=== PATIENT | male | born 1965 | race Caucasian/White ===

== ENCOUNTER 2016-05-31 08:34 | Emergency (ER) | payer OTHER ==
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
--- NOTE | 2016-05-31 13:06 | ED ORDER SUMMARY ---
..... Patient: LISA BARRON OrderSheet [facility] VisitID: [id number] [place] [address] 51y, M Registration Date/Time: 05/31/2016 ORDER SHEET Weight: 81.6 kg (stated) Allergies: No Known Drug Allergy GENERAL ORDERS: Hand 3 or 4V Left Urgent (12:22 05/31/2016 Huy ADAN) (Ack 12:25 TBershannon) (13:29 Kristi R.N.) Dress Wounds (13:05 05/31/2016 Huy ADAN) (13:29 Kristi R.N.) MEDICATION ORDERS: Dilaudid IM 2 mg (NOW) (10:35 05/31/2016 Danielle Shen. verbal order read back to Huy ADAN) (10:36 Danielle R.N.) Dilaudid IM 1 mg (NOW) (12:05 05/31/2016 Mina Aguilar.Frances verbal order read back to Huy ADAN) (12:06 Mina R.N.) Augmentin PO 875 mg (NOW) (13:04 05/31/2016 Huy ADAN) (13:29 Kristi R.N.) IV FLUIDS: ORDER SHEET NOTES: [Electronically signed by Carey Ness R.N. (13:40 05/31/2016)] [Electronically signed by Romaine Dunbar MD (00:05 06/04/2016)] [Electronically locked/signed by Carey Ness R.N. (13:40 05/31/2016)]
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
--- NOTE | 2016-05-31 13:06 | ED ORDER SUMMARY ---
..... Patient: LISA BARRON OrderSheet [facility] VisitID: [id number] [place] [address] 51y, M Registration Date/Time: 05/31/2016 ORDER SHEET Weight: 81.6 kg (stated) Allergies: No Known Drug Allergy GENERAL ORDERS: Hand 3 or 4V Left Urgent (12:22 05/31/2016 Huy ADAN) (Ack 12:25 TBershannon) (13:29 Kristi R.N.) Dress Wounds (13:05 05/31/2016 Huy ADAN) (13:29 Kristi R.N.) MEDICATION ORDERS: Dilaudid IM 2 mg (NOW) (10:35 05/31/2016 Danielle Shen. verbal order read back to Huy ADAN) (10:36 Danielle R.N.) Dilaudid IM 1 mg (NOW) (12:05 05/31/2016 Mina Aguilar.Frances verbal order read back to Huy ADAN) (12:06 Mina R.N.) Augmentin PO 875 mg (NOW) (13:04 05/31/2016 Huy ADAN) (13:29 Kristi R.N.) IV FLUIDS: ORDER SHEET NOTES: [Electronically signed by Carey Ness R.N. (13:40 05/31/2016)] [Electronically signed by Romaine Dunbar MD (00:05 06/04/2016)] [Electronically locked/signed by Carey Ness R.N. (13:40 05/31/2016)]
--- NOTE | 2016-06-04 00:05 | ED MAR SUMMARY ---
..... Medication Administration Record [facility] [address] [place] [address] Patient: LISA BARRON Visit ID: [id number] 51y, M Weight: 81.6 kg Height/Length: 73 in BMI: 23.7 ALLERGIES: No Known Drug Allergy Given 10:31 05/31/2016 Gracie Hines RKushNKush Medication Administered: DILAUDID [IM] (HYDROMORPHONE HCL PF), Dose: 2 mg IM. Medication Ordered: Dilaudid IM 2 mg (NOW). Given 11:52 05/31/2016 Pb Melendrez R.N. Medication Administered: DILAUDID [IM] (HYDROMORPHONE HCL PF), Dose: 1 mg IM. Medication Ordered: Dilaudid IM 1 mg (NOW). Given 13:19 05/31/2016 Carey Ness RKushNKush Medication Administered: AUGMENTIN [PO] (AMOXICILLIN-POT CLAVULANATE), Dose: 875 mg PO. Medication Ordered: Augmentin PO 875 mg (NOW).
--- NOTE | 2016-06-04 00:05 | ED MAR SUMMARY ---
..... Medication Administration Record [facility] [address] [place] [address] Patient: LISA BARRON Visit ID: [id number] 51y, M Weight: 81.6 kg Height/Length: 73 in BMI: 23.7 ALLERGIES: No Known Drug Allergy Given 10:31 05/31/2016 Gracie Hines RKushNKush Medication Administered: DILAUDID [IM] (HYDROMORPHONE HCL PF), Dose: 2 mg IM. Medication Ordered: Dilaudid IM 2 mg (NOW). Given 11:52 05/31/2016 Pb Melendrez R.N. Medication Administered: DILAUDID [IM] (HYDROMORPHONE HCL PF), Dose: 1 mg IM. Medication Ordered: Dilaudid IM 1 mg (NOW). Given 13:19 05/31/2016 Carey Ness RKushNKush Medication Administered: AUGMENTIN [PO] (AMOXICILLIN-POT CLAVULANATE), Dose: 875 mg PO. Medication Ordered: Augmentin PO 875 mg (NOW).
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
--- NOTE | 2016-06-04 00:06 | ED MED RECONCILIATION SUMMARY ---
Patient: LISA BARRON Medication Reconciliation Report [facility] VisitID: [id number] [place] [address] 51y, M Registration Date/Time: 05/31/2016 Weight: 81.6 kg Height/Length: 73 in. BMI: 23.7 ALLERGIES: No Known Drug Allergy The patient's Home Medications are listed below: NONE. The source(s) of the original Home Medication information: Not obtained. The following Medications were given to the patient in the Emergency Department: Dilaudid [IM] IM 2 mg, administered: 05/31/2016 10:31:00 AM Dilaudid [IM] IM 1 mg, administered: 05/31/2016 11:52:00 AM Augmentin [PO] PO 875 mg, administered: 05/31/2016 1:19:00 PM The following Medications were prescribed to the patient: Motrin (available over the counter): take according to label instructions. -- Romaine Dunbar MD Augmentin 875 mg: take 1 tablet orally every 12 hours for 7 days. Dispense fourteen (14). No refills. Substitution is permissible. -- Romaine Dunbar MD Oxycodone/APAP 5 mg/325 mg: take 1-2 tablets orally every 4 hours as needed for pain. Dispense twenty (20). No refill. -- Romaine Dunbar MD
--- NOTE | 2016-06-04 00:06 | ED MED RECONCILIATION SUMMARY ---
Patient: LISA BARRON Medication Reconciliation Report [facility] VisitID: [id number] [place] [address] 51y, M Registration Date/Time: 05/31/2016 Weight: 81.6 kg Height/Length: 73 in. BMI: 23.7 ALLERGIES: No Known Drug Allergy The patient's Home Medications are listed below: NONE. The source(s) of the original Home Medication information: Not obtained. The following Medications were given to the patient in the Emergency Department: Dilaudid [IM] IM 2 mg, administered: 05/31/2016 10:31:00 AM Dilaudid [IM] IM 1 mg, administered: 05/31/2016 11:52:00 AM Augmentin [PO] PO 875 mg, administered: 05/31/2016 1:19:00 PM The following Medications were prescribed to the patient: Motrin (available over the counter): take according to label instructions. -- Romaine Dunbar MD Augmentin 875 mg: take 1 tablet orally every 12 hours for 7 days. Dispense fourteen (14). No refills. Substitution is permissible. -- Romaine Dunbar MD Oxycodone/APAP 5 mg/325 mg: take 1-2 tablets orally every 4 hours as needed for pain. Dispense twenty (20). No refill. -- Romaine Dunbar MD
== END 2016-05-31 13:27 | disposition home or self-care (01) ==
LOC: ED SRH 08:34
DX: S00.93XA Contusion of unspecified part of head, initial encounter (principal); W49.04XA Ring or other jewelry causing external constriction, initial encounter; S60.222A Contusion of left hand, initial encounter; S60.221A Contusion of right hand, initial encounter; V19.9XXA Pedal cyclist (driver) (passenger) injured in unspecified traffic accident, initial encounter; Y93.55 Activity, bike riding; Y92.9 Unspecified place or not applicable; Y99.9 Unspecified external cause status; L03.012 Cellulitis of left finger; S60.447A External constriction of left little finger, initial encounter